=== PATIENT | female | born 1970 | race Two or more races ===

== ENCOUNTER 2019-03-17 05:20 | Day surgery (SDC) | payer OTHER | END 2019-03-17 09:30 | disposition home or self-care (01) | LOC: AMB-ENDOS 05:20 | DX: K64.1 Second degree hemorrhoids (principal) ==

== ENCOUNTER 2019-12-18 13:43 | Outpatient (CLI) | payer OTHER | END 2019-12-18 14:14 | disposition home or self-care (01) | LOC: LAB 13:43 | DX: K92.1 Melena (principal); Z86.010 Personal history of colon polyps; K60.1 Chronic anal fissure; K62.4 Stenosis of anus and rectum; I10 Essential (primary) hypertension ==

== ENCOUNTER 2019-12-27 05:58 | Day surgery (SDC) | payer OTHER | END 2019-12-27 14:30 | disposition home or self-care (01) | LOC: CIR.AMB 05:58 → AMB-ENDOS 11:45 → CIR.AMB 11:45 | DX: K60.1 Chronic anal fissure (principal); K62.4 Stenosis of anus and rectum; D12.8 Benign neoplasm of rectum | CPT/HCPCS: 0184T; 46200; 46288 ==